=== PATIENT | female | born 1950 | race American Indian/Alaskan Native ===

== ENCOUNTER 2018-12-26 09:18 | Outpatient (CLI) | payer MEDICARE ==
[2018-12-26 10:35] LABS: Blood Urea Nitrogen 9 mg/dL (7-17)
--- NOTE | 2018-12-26 13:44 | Cat Scan Report ---
CT ABDOMEN AND PELVIS WITH AND WITHOUT CONTRAST HISTORY: MAIN: (R10.33) ABDOMONAL PAIN TECH NOTES: PT C/O ABD SPASM. PO REDICAT 100 CC OMNI 300 COMPARISON: None. TECHNIQUE: Axial CT images were obtained through the abdomen and pelvis before and after 100 cc of Om nipaque 300 intravenously. Sagittal and coronal reformatted images. All CT scans at this location are performed using CT dose reduction for ALARA by means of automated exposure control. FINDINGS: CT ABDOMEN: Lung Bases: Clear. Liver: No significant abnormality. Biliary: Cholecystectomy. No biliary dilatation. Spleen: No significant abnormality. Unenlarged. Pancreas: No significant abnormality. Adrenals: No significant abnormality. Kidneys: No significant abnormality. Lymphatics: No lymphadenopathy. Vasculature: No significant abnormality. Bowel/Peritoneum: There are a few scattered diverticula in the sigmoid colon. No acute inflammatory c hanges, mass or obstruction. The appendix is not identified. No free fluid or free air. CT PELVIS: : Hysterectomy changes are suspected. Osseous Structures: No significant abnormality. Additional Findings: None IMPRESSION: No acute process is identified in the abdomen or pelvis. Mild sigmoid diverticulosis. No evidence for diverticulitis. Cholecystectomy. Hysterectomy. Assumed appendectomy. Signer Name: Demario Arias Jr, MD Signed: 12/26/2018 1:39 PM Workstation Name: [id number]
== END 2018-12-26 09:19 | disposition home or self-care (01) ==
LOC: CT 09:18
PROVIDERS: ATTEND Internal Medicine
DX: K57.30 Diverticulosis of large intestine without perforation or abscess without bleeding (principal); Z90.710 Acquired absence of both cervix and uterus; Z90.49 Acquired absence of other specified parts of digestive tract
CPT/HCPCS: 36415; 74178; 82565; 84520; Q9967